=== PATIENT | female | born 1960 | race Caucasian/White ===

== ENCOUNTER 2020-12-28 18:46 | Inpatient (IN) ==
[2020-12-29] MEDS ORDERED: Morphine 2 MG/ML SYRINGE IV PRN (00:35)
[2020-12-29 01:59] LABS: Albumin 4.1 g/dL (3.2-5.2); Albumin/Globulin Ratio 1.4 (1-3); Calcium 9.1 mg/dL (8.6-10.3); EGFR African American 112.1 (>60); EGFR Non-African American 92.7 (>60); Globulin 2.9 g/dL (2-4); Total Bilirubin 0.5 mg/dL (0.2-1.0)
[2020-12-29 02:22] LABS: Hematocrit 33 % (35-47); Hemoglobin 11.4 g/dL (12.0-16.0); Mean Corpuscular HGB Conc 35 g/dL (31-36); Mean Corpuscular Hemoglobin 30 pg (27-31); Mean Corpuscular Volume 88 fL (80-97); Mean Platelet Volume 8.3 fL (7.4-10.4); Platelet Count 268 10^3/uL (150-450); Red Blood Count 3.78 10^6 /uL (3.70-4.87); Red Cell Distribution Width 14 % (10-15); White Blood Count 10.2 10^3/uL (3.5-10.8)
[2020-12-29] MEDS: Heparin 5000 UNITS/ML 1 mL VIAL SUBCUT SCH ×3 (05:17→22:46)
[2020-12-30] MEDS ORDERED: ceFAZolin 2 GM PREMIX 2 GM/50 ML BAG ONE (07:25)
[2020-12-30] MEDS ORDERED: Rocuronium 50 mg VIAL 10 mg/ml 5 ml VIAL (50 mg) ONE (07:55)
[2020-12-30] MEDS ORDERED: Midazolam 2 mg/2 ml VIAL 1 mg/ml 2 ml VIAL (2 mg) ONE (07:56)
[2020-12-30] MEDS ORDERED: Bupivacaine 0.5% SDV PF 30ML VIAL ONE (07:56)
[2020-12-30] MEDS ORDERED: fentaNYL 100 mcg/2 ml 50 MCG/ML VIAL ONE ×2 (07:56→09:02)
[2020-12-30] MEDS ORDERED: Propofol 10 MG/ML 20 ML BTL ONE (08:16)
[2020-12-30] MEDS ORDERED: HYDROmorphone 1 MG/1 ML SYRINGE ONE ×2 (08:16→09:02)
[2020-12-30] MEDS ORDERED: Dexamethasone IV 4 MG/ML VIAL 1 ml VIAL ONE (08:35)
[2020-12-30] MEDS ORDERED: HYDROmorphone 1 MG/1 ML SYRINGE IV PRN (08:40)
[2020-12-30] MEDS ORDERED: Naloxone 0.4 mg VIAL 0.4 mg/ml 1 ml VIAL IV PRN (08:40)
[2020-12-30] MEDS ORDERED: fentaNYL 100 mcg/2 ml 50 MCG/ML VIAL IV PRN (08:40)
[2020-12-30] MEDS ORDERED: Ondansetron 4 mg VIAL 2 MG/ML 2 ml VIAL IV PRN (08:40)
[2020-12-30] MEDS ORDERED: Ropivacaine 5 MG/ML 20 ML VIAL 0.5% (100 MG) ONE (09:59)
[2020-12-30] MEDS ORDERED: Labetalol IV 5 MG/ML 20 ml VIAL ONE (11:59)
[2020-12-30] MEDS ORDERED: Labetalol IV 5 MG/ML 20 ml VIAL IV PUSH ONE (12:02)
[2020-12-30] MEDS: [UNRECOGNIZED DRUG - OTHER] IVPB SCH (16:31)
[2020-12-30] MEDS ORDERED: Dextran 70/Hypromellose Tears Eye Drops 15 ml BTL (for Artificials Tears) BOTH EYES PRN (18:31)
[2020-12-31] MEDS: [UNRECOGNIZED DRUG - OTHER] IVPB SCH ×2 (00:03→08:12)
[2020-12-31 08:57] LABS: ABS Basophils 0.1 10^3/ul (0-0.2); ABS Eosinophils 0.1 10^3/ul (0-0.6); ABS Lymphocytes 1.8 10^3/ul (1.0-4.8); ABS Monocytes 0.8 10^3/ul (0-0.8); ABS Neutrophils 4.4 10^3/ul (1.5-7.7); Eosinophil % 1.2 %; Hematocrit 27 % (35-47); Lymphocyte % 24.9 %; Mean Corpuscular HGB Conc 34 g/dL (31-36); Mean Corpuscular Hemoglobin 30 pg (27-31); Mean Corpuscular Volume 89 fL (80-97); Mean Platelet Volume 7.9 fL (7.4-10.4); Platelet Count 237 10^3/uL (150-450); Red Blood Count 2.99 10^6 /uL (3.70-4.87); Red Cell Distribution Width 13 % (10-15); White Blood Count 7.1 10^3/uL (3.5-10.8)
[2020-12-31 09:15] LABS: EGFR African American 26.1 (>60); EGFR Non-African American 21.6 (>60); Potassium 2.9 mmol/L (3.5-5.0)
[2020-12-31 09:17] LABS: Calcium 6.4 mg/dL (8.6-10.3)
[2020-12-31] MEDS ORDERED: Lactated Ringers 500 ml BAG 500 ML IV ONE (09:42)
[2020-12-31] MEDS ORDERED: Senna TAB 8.6 mg TAB PO PRN (09:44)
[2020-12-31] MEDS ORDERED: Polyethylene Glycol 3350 17 GM PACKET PO PRN (09:44)
[2020-12-31] MEDS ORDERED: Lactated Ringers 1000 ml BAG 1,000 ML IV SCH (10:00)
[2020-12-31] MEDS: KCL 20 MEQ/100 ML IVPREMIX 20 MEQ/100 ML BAG IV SCH ×2 (11:31→16:43)
[2020-12-31 15:11] LABS: Magnesium 1.5 mg/dL (1.9-2.7)
[2020-12-31 16:22] LABS: EGFR African American 101.3 (>60); EGFR Non-African American 83.7 (>60); Potassium 4.2 mmol/L (3.5-5.0)
[2020-12-31] MEDS ORDERED: Magnesium Sulf 4 GM/100 ML IV 4,000 MG/100 ML BAG IVPB ONE (16:30)
[2021-01-01 06:01] LABS: Calcium 8.1 mg/dL (8.6-10.3); EGFR African American 127.9 (>60); EGFR Non-African American 105.7 (>60); Magnesium 2.3 mg/dL (1.9-2.7); Potassium 4.1 mmol/L (3.5-5.0)
[2021-01-01] MEDS: Magnesium Hydroxide LIQ 30 ML UDC PO SCH ×2 (11:06→19:46)
[2021-01-02] MEDS: Magnesium Hydroxide LIQ 30 ML UDC PO SCH (08:22)
[2021-01-02 11:50] VITALS: BP 134/60
== END 2021-01-02 14:30 ==
LOC: ED 18:46 → SSU 12-29 00:06 → PMRU 01-02 14:35 → SSU 01-02 14:59
PROVIDERS: ADMIT Internal Medicine; ATTEND Internal Medicine

== ENCOUNTER 2021-01-02 11:16 | Inpatient (IN) ==
[2021-01-02] MEDS ORDERED: Senna TAB 8.6 mg TAB PO PRN (16:27)
[2021-01-02] MEDS ORDERED: Magnesium Hydroxide LIQ 30 ML UDC PO PRN (16:27)
[2021-01-03 06:02] LABS: ABS Basophils 0.1 10^3/ul (0-0.2); ABS Eosinophils 0.4 10^3/ul (0-0.6); ABS Lymphocytes 2.1 10^3/ul (1.0-4.8); ABS Monocytes 0.9 10^3/ul (0-0.8); ABS Neutrophils 4.7 10^3/ul (1.5-7.7); Eosinophil % 4.8 %; Hematocrit 30 % (35-47); Hemoglobin 10.1 g/dL (12.0-16.0); Lymphocyte % 26.2 %; Mean Corpuscular HGB Conc 34 g/dL (31-36); Mean Corpuscular Hemoglobin 30 pg (27-31); Mean Corpuscular Volume 88 fL (80-97); Mean Platelet Volume 7.6 fL (7.4-10.4); Nucleated Red Blood Cells % 0.1; Platelet Count 353 10^3/uL (150-450); Red Blood Count 3.37 10^6 /uL (3.70-4.87); Red Cell Distribution Width 13 % (10-15); White Blood Count 8.1 10^3/uL (3.5-10.8)
[2021-01-03 06:49] LABS: Albumin 3.5 g/dL (3.2-5.2); Albumin/Globulin Ratio 1.3 (1-3); Calcium 8.6 mg/dL (8.6-10.3); EGFR Non-African American 112.4 (>60); Globulin 2.8 g/dL (2-4); Potassium 4.1 mmol/L (3.5-5.0); Total Bilirubin 0.6 mg/dL (0.2-1.0); Total Protein 6.3 g/dL (6.4-8.9)
[2021-01-05 06:27] VITALS: BP 156/68
== END 2021-01-05 15:00 | disposition home or self-care (01) | DRG 923 ==
LOC: PMRU 15:06
PROVIDERS: ADMIT Physical Medicine & Rehabilitation; ATTEND Physical Medicine & Rehabilitation